=== PATIENT | female | born 1990 | race Two or more races ===

== ENCOUNTER 2016-06-20 04:49 | Inpatient (IN) | payer MEDICAID ==
[~2016-06-20] VITALS: Ht 162.6 cm; Wt 117.9 kg
[2016-06-20] VITALS (8 sets, daily range): BP systolic 79–122; BP diastolic 30–73
--- NOTE | 2016-06-20 05:03 | Emergency Room Report ---
History of Present Illness General Chief Complaint: Syncope Source: Patient, EMS (Francis Segovia M.D.) Present Illness HPI The patient presents after having a syncopal episode. She started bleeding heavily this evening. She states she lost either 4 or 5 cups of blood with blood clots today. She's from June 04. Minimal bleeding before last night. She decided to shower to get the blood cleaned off. It was a hot shower. In the shower, she became short of breath and then passed out. When she was sitting in the shower, she woke up and could not move her legs. She felt her arms and hands tingling. There has been minimal cramping since delivery. There was minimal bleeding daily since the delivery. No fevers, NVD. No dysuria. No h/o seizures. She is breast feeding. PIMENTEL slight after this episode. (Francis Segovia M.D.) Allergies: Coded Allergies: No Known Allergies (Unverified , 06/20/16) Patient History Past Medical History: see triage record Social History Narrative has 11 month old at home Last Menstrual Period: post- 2 weeks Now: No Reviewed Nursing Documentation: PMH: Agreed, PSxH: Agreed (Francis Segovia M.D.) Nursing Documentation-PMH Past Medical History: No Stated History (Francis Segovia M.D.) Review of Systems All Other Systems: negative except mentioned in HPI (Francis Segovia M.D.) Physical Exam Vital Signs Date Time Temp Pulse Resp B/P Pulse Ox O2 Delivery O2 Flow Rate FiO2 06/20/16 04:41 97.3 70 16 122/73 99 Room Air Sp02 EP Interpretation: reviewed, normal General Appearance: well appearing, no apparent distress, GCS 15 Head: normocephalic, atraumatic Eyes: bilateral eye PERRL, bilateral eye conjunctivae pale ENT: moist mucus membranes Neck: supple Respiratory: lungs clear, normal breath sounds Cardiovascular #1: regular rate, rhythm Cardiovascular #2: 2+ radial (R) Gastrointestinal: normal inspection, normal bowel sounds, non tender, no mass, non-distended Genitourinary: other - one full pad Musculoskeletal: back normal, gait/station normal, normal range of motion Neurologic: alert, oriented x3, screen making technician III-XII nml as tested, motor strength/tone normal, DTRs symmetric, sensory intact, cerebellar normal, speech normal Psychiatric: mood/affect normal Skin: warm/dry, other - minimal pallor (Francis Segovia M.D.) Medical Decision Making Diagnostic Impression: Primary Impression: Syncope Qualified Codes: R55 - Syncope and collapse Additional Impression: Retained products of conception ER Course Patient presents with syncope with a hemorrhage. Differential includes syndrome, retained products, abnormal vaginal bleeding the most others. Also cardiac causes need to be excluded. Patient will have evaluation with CBC, lites, coagulations studies. The patient will receive IV hydration. This patient is a headache a CT scan will be done of her head. Initial H&H are extremely low. She does not need emergent transfusion however she needs to be observed and have repeat H&H done. She also needs to be observed for the actual syncopal episode. The fact that she was able to move her legs may be related to hypotension at the time but also neurologic evaluation is also suggested. Discussed with [place] correctional case manager. Signed out to Dr. Lopez. He is planning on obtaining an ultrasound and observing the patient. Laboratory Tests Test 06/20/16 05:14 06/20/16 05:30 White Blood Count 15.7 K/UL (4.8-10.8) H Red Blood Count 4.58 M/UL (4.20-5.40) Hemoglobin 11.7 G/DL (12.0-16.0) L Hematocrit 35.7 % (37.0-47.0) L Mean Corpuscular Volume 78 FL (80-99) L Mean Corpuscular Hemoglobin 25.6 PG (27.0-31.0) L Mean Corpuscular Hemoglobin Concent 32.9 G/DL (32.0-36.0) Red Cell Distribution Width 14.3 % (11.6-14.8) Platelet Count 374 K/UL (150-450) Mean Platelet Volume 6.6 FL (6.5-10.1) Neutrophils (%) (Auto) 75.1 % (45.0-75.0) H Lymphocytes (%) (Auto) 18.0 % (20.0-45.0) L Monocytes (%) (Auto) 5.0 % (1.0-10.0) Eosinophils (%) (Auto) 1.2 % (0.0-3.0) Basophils (%) (Auto) 0.7 % (0.0-2.0) Prothrombin Time Pending Prothrombin Time INR Pending PTT Pending Sodium Level 137 mEQ/L (135-145) Potassium Level 4.0 mEQ/L (3.4-4.9) Chloride Level 99 mEQ/L (98-107) Carbon Dioxide Level 23 mEQ/L (20-30) Anion Gap 15 (5-15) Blood Urea Nitrogen 16 mg/dL (7-23) Creatinine 0.7 mg/dL (0.5-0.9) Estimate Glomerular Filtration Rate > 60 mL/min (>60) Glucose Level 99 mg/dL (74-106) Calcium Level 8.9 mg/dL (8.6-10.2) Total Bilirubin 0.3 mg/dL (0.0-1.2) Aspartate Amino Transferase (AST) 17 U/L (5-40) Alanine Aminotransferase (ALT) 14 U/L (3-33) Alkaline Phosphatase 89 U/L (35-104) Total Creatine Kinase 69 U/L (26-140) Troponin I < 0.30 ng/mL (<=0.30) Total Protein 6.5 g/dL (6.6-8.7) L Albumin 3.6 g/dL (3.5-5.2) Globulin 2.9 g/dL Albumin/Globulin Ratio 1.2 (1.0-2.7) Urine Color Yellow Urine Appearance Clear Urine pH 6 (4.5-8.0) Urine Specific [place] 1.020 (1.005-1.035) Urine Protein 3+ (NEGATIVE) H Urine Glucose (UA) Negative (NEGATIVE) Urine Ketones 1+ (NEGATIVE) H Urine Occult Blood 2+ (NEGATIVE) H Urine Nitrite Negative (NEGATIVE) Urine Bilirubin 1+ (NEGATIVE) H Urine Ictotest Negative Urine Urobilinogen 1 MG/DL (0.0-1.0) H Urine Leukocyte Esterase 1+ (NEGATIVE) H Urine RBC 0-2 /HPF (0 - 2) Urine WBC 0-2 /HPF (0 - 2) Urine Squamous Epithelial Cells Few /LPF (NONE/OCC) Urine Bacteria Few /HPF (NONE) Urine Mucus Many /LPF (NONE/OCC) H (Francis Segovia M.D.) ER Course Refer to the initial note for the history examined the presentation At this time after further observation per the request of the patient's HMO Patient had a decrease in her hemoglobin down to 10.8 Pelvic ultrasound was obtained which shows concerning findings of retained products of conception Patient was further hydrated And at this time given this finding requires admission for further inpatient care Please note the delay regarding the patient's presentation to full of vision This was secondary to multiple factors, including the patient's medical presentation The need for further observation And request per HMO insurance Labs Test 06/20/16 05:14 06/20/16 05:30 06/20/16 06:50 06/20/16 08:00 White Blood Count 15.7 K/UL (4.8-10.8) 12.7 K/UL (4.8-10.8) Red Blood Count 4.58 M/UL (4.20-5.40) 4.20 M/UL (4.20-5.40) Hemoglobin 11.7 G/DL (12.0-16.0) 10.8 G/DL (12.0-16.0) Hematocrit 35.7 % (37.0-47.0) 33.8 % (37.0-47.0) Mean Corpuscular Volume 78 FL (80-99) 80 FL (80-99) Mean Corpuscular Hemoglobin 25.6 PG (27.0-31.0) 25.8 PG (27.0-31.0) Mean Corpuscular Hemoglobin Concent 32.9 G/DL (32.0-36.0) 32.1 G/DL (32.0-36.0) Red Cell Distribution Width 14.3 % (11.6-14.8) 14.6 % (11.6-14.8) Platelet Count 374 K/UL (150-450) 294 K/UL (150-450) Mean Platelet Volume 6.6 FL (6.5-10.1) 6.7 FL (6.5-10.1) Neutrophils (%) (Auto) 75.1 % (45.0-75.0) 84.4 % (45.0-75.0) Lymphocytes (%) (Auto) 18.0 % (20.0-45.0) 11.9 % (20.0-45.0) Monocytes (%) (Auto) 5.0 % (1.0-10.0) 2.8 % (1.0-10.0) Eosinophils (%) (Auto) 1.2 % (0.0-3.0) 0.3 % (0.0-3.0) Basophils (%) (Auto) 0.7 % (0.0-2.0) 0.6 % (0.0-2.0) Sodium Level 137 mEQ/L (135-145) Potassium Level 4.0 mEQ/L (3.4-4.9) Chloride Level 99 mEQ/L (98-107) Carbon Dioxide Level 23 mEQ/L (20-30) Anion Gap 15 (5-15) Blood Urea Nitrogen 16 mg/dL (7-23) Creatinine 0.7 mg/dL (0.5-0.9) Estimat Glomerular Filtration Rate > 60 mL/min (>60) Glucose Level 99 mg/dL (74-106) Calcium Level 8.9 mg/dL (8.6-10.2) Total Bilirubin 0.3 mg/dL (0.0-1.2) Aspartate Amino Transf (AST/SGOT) 17 U/L (5-40) Alanine Aminotransferase (ALT/SGPT) 14 U/L (3-33) Alkaline Phosphatase 89 U/L (35-104) Total Creatine Kinase 69 U/L (26-140) Troponin I < 0.30 ng/mL (<=0.30) Total Protein 6.5 g/dL (6.6-8.7) Albumin 3.6 g/dL (3.5-5.2) Globulin 2.9 g/dL Albumin/Globulin Ratio 1.2 (1.0-2.7) Urine Color Yellow Urine Appearance Clear Urine pH 6 (4.5-8.0) Urine Specific [place] 1.020 (1.005-1.035) Urine Protein 3+ (NEGATIVE) Urine Glucose (UA) Negative (NEGATIVE) Urine Ketones 1+ (NEGATIVE) Urine Occult Blood 2+ (NEGATIVE) Urine Nitrite Negative (NEGATIVE) Urine Bilirubin 1+ (NEGATIVE) Urine Ictotest Negative Urine Urobilinogen 1 MG/DL (0.0-1.0) Urine Leukocyte Esterase 1+ (NEGATIVE) Urine RBC 0-2 /HPF (0 - 2) Urine WBC 0-2 /HPF (0 - 2) Urine Squamous Epithelial Cells Few /LPF (NONE/OCC) Urine Bacteria Few /HPF (NONE) Urine Mucus Many /LPF (NONE/OCC) Prothrombin Time 10.5 SEC (9.30-11.50) Prothromb Time International Ratio 1.0 (0.9-1.1) Activated Partial Thromboplast Time 25 SEC (23-33) (JEANNINE LOPEZ D.O.) EKG Diagnostic Results Rate: normal Rhythm: NSR ST Segments: no acute changes (Francis Segovia M.D.) Rhythm Strip Diag. Results EP Interpretation: yes Rhythm: NSR, no PVC's, no ectopy (Francis Segovia M.D.) EP Interpretation: yes Rate: 67 Rhythm: NSR, no PVC's, no ectopy (JEANNINE LOPEZ D.O.) Chest X-Ray Diagnostic Results EP Interpretation: Yes Findings: no consolidation, no effusion, no pneumothorax, no acute cardiopulmonary disease, other - poor inspiration Number of Views: 1 (Francis Segovia M.D.) CT/MRI/US Diagnostic Results CT/MRI/US Diagnostic Results : Imaging Test Ordered: head Impression nl brain, bones and ST (Francis Segovia M.D.) CT/MRI/US Diagnostic Results : Impression Pelvic ultrasound: Evidence of retained products of conception (JEANNINE LOPEZ D.O.) Status: improved (Francis Segovia M.D.) Status: improved (JEANNINE LOPEZ D.O.) Disposition: ADMITTED INPATIENT Condition: Serious - but stable for transfer Francis Segovia M.D. Jun 20, 2016 05:03 JEANNINE LOPEZ D.O. Jun 20, 2016 13:54
[2016-06-20 05:53] LABS: APPEARANCE,URINE CLEAR; KETONES,URINE 1+ (NEGATIVE); LEUKOCYTE ESTERASE ,URINE 1+ (NEGATIVE); NITRITE,URINE NEGATIVE (NEGATIVE); PH,URINE 6 (4.5-8.0); PROTEIN,URINE 3+ (NEGATIVE); UROBILINOGEN,URINE 1 MG/DL (0.0-1.0)
[2016-06-20 05:55] LABS: BASOPHILS % (AUTO) 0.7 % (0.0-2.0); EOSINOPHILS % (AUTO) 1.2 % (0.0-3.0); MEAN CORPUSCULAR HEMOGLOBIN 25.6 PG (27.0-31.0); MEAN CORPUSCULAR HGB CONC 32.9 G/DL (32.0-36.0); MEAN CORPUSCULAR VOLUME 78 FL (80-99); MEAN PLATELET VOLUME 6.6 FL (6.5-10.1); NEUTROPHILS % (AUTO) 75.1 % (45.0-75.0); PLATELET COUNT 374 K/UL (150-450); RED BLOOD COUNT 4.58 M/UL (4.20-5.40); RED CELL DISTRIBUTION WIDTH 14.3 % (11.6-14.8); WHITE BLOOD COUNT 15.7 K/UL (4.8-10.8)
[2016-06-20 06:08] LABS: RBC,URINE 0-2 /HPF (0 - 2); SQUAMOUS EPITHELIAL CELL,UR FEW /LPF (NONE/OCC); WBC,URINE 0-2 /HPF (0 - 2)
[2016-06-20 06:09] LABS: BACTERIA,URINE FEW /HPF; ICTOTEST NEGATIVE; MUCUS,URINE MANY /LPF (NONE/OCC)
[2016-06-20 06:14] LABS: ALANINE AMINOTRANSFERASE 14 U/L (3-33); ALBUMIN/GLOBULIN RATIO 1.2 (1.0-2.7); ANION GAP 15 (5-15); ASPARTATE AMINO TRANSFERASE 17 U/L (5-40); CALCIUM 8.9 mg/dL (8.6-10.2); CARBON DIOXIDE 23 mEQ/L (20-30); CHLORIDE 99 mEQ/L (98-107); CREATININE 0.7 mg/dL (0.5-0.9); GLOMERULAR FILTRATION RATE > 60 mL/min (>60); HEMOLYSIS 41; SODIUM 137 mEQ/L (135-145); TOTAL PROTEIN 6.5 g/dL (6.6-8.7)
[2016-06-20 06:26] LABS: TROPONIN I < 0.30 ng/mL (<=0.30)
[2016-06-20] MEDS ORDERED: NKM (06:38)
[2016-06-20 07:17] LABS: PROTHROMBIN TIME 10.5 SEC (9.30-11.50)
[2016-06-20 08:27] LABS: BASOPHILS % (AUTO) 0.6 % (0.0-2.0); EOSINOPHILS % (AUTO) 0.3 % (0.0-3.0); LYMPHOCYTES % (AUTO) 11.9 % (20.0-45.0); MEAN CORPUSCULAR HEMOGLOBIN 25.8 PG (27.0-31.0); MEAN CORPUSCULAR HGB CONC 32.1 G/DL (32.0-36.0); MEAN CORPUSCULAR VOLUME 80 FL (80-99); MEAN PLATELET VOLUME 6.7 FL (6.5-10.1); MONOCYTES % (AUTO) 2.8 % (1.0-10.0); NEUTROPHILS % (AUTO) 84.4 % (45.0-75.0); PLATELET COUNT 294 K/UL (150-450); RED CELL DISTRIBUTION WIDTH 14.6 % (11.6-14.8); WHITE BLOOD COUNT 12.7 K/UL (4.8-10.8)
--- NOTE | 2016-06-20 08:40 | Diagnostic Imaging Report ---
Indications: SYNCOPE Technique: Continuous helical CT imaging of the brain was performed with automatic exposure control on a Siemens sensation [address] scanner. Axial and coronal images were reconstructed at 5 mm slice thickness and interval. CTDI volume(s): 70 mGy Total DLP: 1411 mGy-cm Findings: Comparison: None. Intracranial anatomy is unremarkable. No evidence of mass or hemorrhage, other attenuation abnormality, mass effect, midline shift, hydrocephalus or increased intracranial pressure. Bone window images are unremarkable. Visualized paranasal sinuses and mastoid air cells are clear. IMPRESSION: Negative noncontrast CT scan of the brain . Written preliminary report placed in PACS 06/20/[address] scanner at [facility] is accredited by the [employer] and the scans are performed using protocols designed to limit radiation exposure to as low as reasonably achievable to attain images of sufficient resolution adequate for diagnostic evaluation.
--- NOTE | 2016-06-20 12:45 | Diagnostic Imaging Report ---
Indications: Pelvic pain, heavy vaginal bleeding, 2 weeks Technique: Transabdominal and transvaginal real-time grayscale and duplex Doppler imaging of the pelvis was performed. Findings: Comparison: None Uterus measures 15 x 8.7 x 7.1cm. It demonstrates mildly heterogeneous myometrial echogenicity and hypervascularity without obvious focal abnormality.. The endometrial complex measures 16 mm in diameter in the uterine fundus, 23 mm in the lower uterine segment. It is diffusely heterogeneous. Suggestion of associated mass within the lower uterine segment canal, 26 x 23 mm. Some associated vascularity on color Doppler imaging. Cervix unremarkable. No free fluid is present in the cul-de-sac. Right ovary measures 3.3 x 2.5 x 2 cm. It is unremarkable in appearance. Duplex Doppler imaging demonstrates normal blood flow. No extra-ovarian abnormality is seen. Left ovary measures 2.7 x 3.1 x 1.5 cm. It is unremarkable in appearance. Duplex Doppler imaging demonstrates normal blood flow. No extra-ovarian abnormality is seen. IMPRESSION: Enlarged, heterogeneous, hypervascular uterus compatible with recent state Enlarged, heterogeneous endometrial echo complex with questionable lower segment mass, no hypervascularity. Retained products of conception must be excluded. Unremarkable ovaries/adnexa Findings discussed with Dr. Hammond, physician, by telephone at time of this dictation
[2016-06-20] MEDS ORDERED: Morphine Sulfate 2mg/ml Inj IVP PRN ×2 (13:30)
--- NOTE | 2016-06-20 14:59 | Diagnostic Imaging Report ---
Indication: Chest pain, syncope Technique: Single portable AP view of the chest. Findings: Comparison: None. The bones and extra pulmonary soft tissues, cardiomediastinal silhouette, pulmonary vasculature and parenchyma, and pleural surfaces are unremarkable. IMPRESSION: Negative portable AP chest.
[2016-06-20] MEDS ORDERED: D5 1/2NS w/KCl 20mEq 1,000 ML IV SCH (15:30)
--- NOTE | 2016-06-20 20:08 | Cardiology Report ---
APPROVED REPORT EKG Measurement Heart [id number] Normal sinus rhythm Normal ECG
[2016-06-20] MEDS ORDERED: Heparin 5000 units/ml inj SUBQ SCH (21:00)
--- NOTE | 2016-06-21 15:43 | Discharge Summary ---
Discharge Summary Hospital Course Date of Admission Jun 20, 2016 at 12:00 Date of Discharge Jun 20, 2016 at 16:34 Admitting Diagnosis syncope, post hemorrhage HPI Cherie Hall is a 25 year old female who was admitted on Jun 20, 2016 at 12: 00 for Syncope, Post Hemorrhage Hospital Course [id number] Discharge Discharge Disposition Patient was discharged AMA Discharge Diagnoses: Bushra Alaniz NP Jun 21, 2016 15:43
--- NOTE | 2016-06-22 08:28 | Discharge Summary 2 SIG ---
DATE OF ADMISSION: 06/20/2016 DATE OF DISCHARGE: 06/20/2016 BRIEF HOSPITAL COURSE: The patient is a 25-year-old female who presented to ED after a syncopal episode. The patient's from 06/04/2016 and has been having minimal bleed. She started bleeding heavily and went to shower. However, in the shower she became short of breath and passed out. Initial blood work at ED showed hemoglobin of 11.7 and [address] Head CT was negative. A transvaginal ultrasound showed retained products of conception. Repeat hemoglobin went down and the patient was admitted for inpatient care. However, upon transfer to the floor, the patient decided to sign out against medical advice. FINAL DIAGNOSES: 1. Syncope. 2. hemorrhage . Blas Bernrado M.D. I have been assigned to dictate discharge summary on this account and I was not involved in the patient's management. Bushra Alaniz N.P. DR: Lavell JOB#: [id number] CC:
== END 2016-06-20 16:34 | disposition left against medical advice (07) | DRG 561 ==
LOC: ENRESERVTM → ENRESERVDT → ENRESERV → EDBD 04:49 → EMR 05:00 → 2E 12:00 → EDBEDREQ 12:34
DX: O72.2 Delayed and secondary postpartum hemorrhage (principal); R55 Syncope and collapse
CPT/HCPCS: 36415; 70450; 71010; 76830; 76856; 80053; 81003; 82550; 84484; 85025; 85610; 85730; 86850; 86900; 86901; 87040; 93005